=== PATIENT | female | born 1985 | race Two or more races ===

== ENCOUNTER → 2024-04-28 | Outpatient (CLI) | payer OTHER, SELFPAY ==
[2024-04-28 07:05] LABS: Misc Send Out* See Sep Rpt
[2024-04-28 16:07] LABS: RA Screen Negative (Negative)
[2024-05-09 15:31] LABS: Sjogren's antibody (SS-A) <1.0 NEG AI (<1.0 NEGATIVE); Sm Antibody <1.0 NEG AI (<1.0 NEGATIVE)
[2024-05-10 06:30] LABS: ANA Screen, IFA POSITIVE (NEGATIVE); ANA Titer 1:40 titer; Actin Antibody (IgG)* <20 U; Complement Component C3* 147 mg/dL (83-193); Complement Component C4c* 24 mg/dL (15-57); Endomysial Ab IgA NEGATIVE (NEGATIVE); Gastric Parietal Cell Ab* 20.5 U; Mitochondrial Ab NEGATIVE (NEGATIVE); Myocardial Ab, IF NEGATIVE (NEGATIVE); Scl-70 Antibody* <1.0 NEG AI (<1.0 NEGATIVE); Sjogren's Antibody (SS-B) <1.0 NEG AI (<1.0 NEGATIVE); Sm/RNP Antibody <1.0 NEG AI (<1.0 NEGATIVE); Striated Muscle Ab NEGATIVE (NEGATIVE); Thyroid Peroxidase Antibodies* 1 IU/mL (<9)
== END | disposition home or self-care (01) ==
LOC: COPL 06:38
PROVIDERS: PCP Nurse Practitioner Primary Care; Referring Provider Specialist; Visit Provider Specialist
DX: R14.0 Abdominal distension (gaseous) (principal); R10.32 Left lower quadrant pain; R53.83 Other fatigue
CPT/HCPCS: 36415; 83516; 86015; 86038; 86039; 86160; 86225; 86231; 86235; 86255; 86376; 86430

== ENCOUNTER → 2024-12-01 | Outpatient (CLI) | payer BC, SELFPAY ==
--- NOTE | 2024-12-01 09:06 | XR_ITS ---
Examination: Lumbar spine, 5 views Technique: Lumbar spine AP, lateral, coned lateral lower lumbar spine, bilateral obliques 5 views Exam date and time: December 01, 2024 0907 hours INDICATIONS: Lower back pain one year. FINDINGS: Embolization type wires in the left abdomen and pelvis Lumbar dextroscoliosis 8 degrees Moderate diffuse facet arthropathy No lumbar fracture Moderate to advanced degenerative disc disease L5-S1 IMPRESSION: Moderate to advanced degenerative disc disease L5-S1
[2024-12-01 10:19] LABS: Basophils % (Auto) 0 % (0-2.5); Eosinophils # (Auto) 0.1 Thou/mm3 (0.0-0.5); Eosinophils % (Auto) 2 % (0-10); Hematocrit 37.2 % (36.0-46.0); Hemoglobin 13.1 g/dL (12.0-16.0); Immature Granulocytes % (Auto) 0 % (0-0); Immature Granulocytes Auto 0.01 Thou/mm3 (0.00-0.00); Lymphocytes # (Auto) 2.2 Thou/mm3 (1.0-4.8); Lymphocytes % (Auto) 34 % (10-50); Mean Corpuscular HGB Conc 35.2 g/dl (31.0-37.0); Mean Corpuscular Hemoglobin 31.6 pg (25.0-35.0); Mean Corpuscular Volume 90 fL (80-100); Monocytes # (Auto) 0.5 Thou/mm3 (0.0-0.8); Monocytes % (Auto) 7 % (0-12); Neutrophils # (Auto) 3.7 Thou/mm3 (1.8-7.7); Neutrophils % (Auto) 57 % (37-80); Nucleated Red Blood Cell % 0 /100 WBC (0); Platelet Count 255 Thou/mm3 (140-440); Red Blood Count 4.15 Miln/mm3 (4.00-5.20); White Blood Count 6.4 Thou/mm3 (3.6-11.0)
[2024-12-01 10:29] LABS: Glucose Estimated Average 97 mg/dL (80-131)
[2024-12-01 10:36] LABS: T4 (Thyroxine) 7.8 mcg/dL (4.5-10.9)
[2024-12-01 10:38] LABS: Alanine Aminotransferase 24 U/L (10-49); Albumin, Serum 4.8 gm/dL (3.5-5.0); Albumin/Globulin Ratio 2.1 (1.2-2.2); Alkaline Phosphatase 92 U/L (46-116); Anion Gap 9 (7-16); Aspartate Amino Transferase 30 U/L (0-34); BUN/Creatinine Ratio 20 Ratio (12-20); Bilirubin,Direct 0.1 mg/dL (0.0-0.3); Bilirubin,Total 0.4 mg/dL (0.3-1.2); Blood Urea Nitrogen 14 mg/dL (9-23); Calcium 9.2 mg/dL (8.3-10.6); Calcium (Corrected) 9.2 mg/dL (8.5-10.1); Carbon Dioxide 27.7 mMol/L (20.0-31.0); Cardiac Risk Estimate 2.5 RATIO (3.7-5.6); Chloride 107 mMol/L (98-107); Cholesterol 204 mg/dL (132-200); Creatinine (Component) 0.7 mg/dL (0.6-1.3); Free T4 (Free Thyroxine) 1.13 ng/dL (0.89-1.76); Globulin 2.3 gm/dL (2.3-3.5); Glucose 84 mg/dL (74-106); HDL Cholesterol 82 mg/dL (40-60); LDL Cholesterol,Calculated 90 mg/dL (0-130); Osmolality,Calculated 286 (275-295); Potassium 4.4 mMol/L (3.4-5.1); Sodium 144 mMol/L (136-145); Thyroid Stimulating Hormone 1.25 uIU/mL (0.55-4.78); Total Protein 7.1 gm/dL (5.7-8.2); Triglycerides 159 mg/dL (30-150); eGFR > 60 See Note
[2024-12-05 06:39] LABS: T3,Total* 111 ng/dL (76-181)
== END | disposition home or self-care (01) ==
PROVIDERS: PCP Physician Assistant; Referring Provider Nurse Practitioner Family; Visit Provider Nurse Practitioner Family
DX: M51.379 Other intervertebral disc degeneration, lumbosacral region without mention of lumbar back pain or lower extremity pain (principal); Z00.00 Encounter for general adult medical examination without abnormal findings
CPT/HCPCS: 36415; 72110; 80053; 80061; 82248; 83036; 84436; 84439; 84443; 84480; 85025

== ENCOUNTER 2025-05-18 17:11 | Emergency (ER) | payer BC, SELFPAY ==
[2025-05-18 17:11] VITALS: BMI 27.4
[2025-05-18 17:23] VITALS: BP 126/79; PULSE 74; RESP 19; TEMP 36.8; O2SAT 99
--- NOTE | 2025-05-18 17:28 | XR_ITS ---
Examination: CT abdomen and pelvis without contrast. Coronal 3-D reconstructions. Sagittal 2-D reconstructions. Date and time of exam: May 18, 2025, 1942 hours INDICATIONS: Abdomen pain lower back pain beginning 1 week ago CTDI: vol (mGy): 7.54 DLP: (mGycm): 401 Technique: Axial images of the abdomen have been obtained, 3 mm slice thickness Intravenous contrast material has not been administered. Low dose protocols were performed. One or more of the following dose reduction techniques were used; automated exposure control, adjustment of the mA and/or KV according to patient size, use of iterative reconstruction technique. Findings: No focal liver or splenic lesions No gallstones No pancreatic mass No renal or ureteral calculi, no hydronephrosis Normal appendix No bowel obstruction or diverticulitis Moderate degenerative disc disease L5-S1 IMPRESSION: No acute process in the abdomen or pelvis Moderate degenerative disc disease L5-S1
--- NOTE | 2025-05-18 17:29 | PD.EDRME ---
Rapid Medical Screening Exam E Arrival date/time: 05/18/25 17:11 39-year-old female with no known medical history presents to the emergency room with a chief complaint of 8 out of 10 diffuse abdominal pain, back pain, and nausea x 1 week I have greeted and performed a focused initial assessment of this patient. A comprehensive ED assessment and evaluation of the patient, analysis of all test results, and completion of the medical decision making process will be conducted by additional ED providers. Chief Complaint: Abdominal Pain Vital signs: Vital Signs Temperature 98.3 F 05/18/25 17:23 Pulse Rate 74 05/18/25 17:23 Respiratory Rate 19 05/18/25 17:23 Blood Pressure 126/79 05/18/25 17:23 Pulse Oximetry (%) 99 05/18/25 17:23 Oxygen Delivery Method Room Air 05/18/25 17:23 Vital signs reviewed by provider: Yes Exam: 8 out of 10 abdominal pain to all quadrants of her abdomen Clear bilateral lung sounds Clinical Impression: Appendicitis/cholelithiasis/cholecystitis/UTI/gastroenteritis
[2025-05-18 17:59] LABS: Basophils # (Auto) 0.0 Thou/mm3 (0.0-0.2); Basophils % (Auto) 0 % (0-2.5); Eosinophils # (Auto) 0.1 Thou/mm3 (0.0-0.5); Eosinophils % (Auto) 1 % (0-10); Hematocrit 37.3 % (36.0-46.0); Hemoglobin 13.1 g/dL (12.0-16.0); Immature Granulocytes Auto 0.02 Thou/mm3 (0.00-0.00); Lymphocytes # (Auto) 2.8 Thou/mm3 (1.0-4.8); Lymphocytes % (Auto) 40 % (10-50); Mean Corpuscular HGB Conc 35.1 g/dl (31.0-37.0); Mean Corpuscular Hemoglobin 32.3 pg (25.0-35.0); Mean Corpuscular Volume 92 fL (80-100); Monocytes # (Auto) 0.4 Thou/mm3 (0.0-0.8); Monocytes % (Auto) 6 % (0-12); Neutrophils # (Auto) 3.8 Thou/mm3 (1.8-7.7); Neutrophils % (Auto) 52 % (37-80); Nucleated Red Blood Cell # 0.00 Thou/mm3 (0.00-0.00); Nucleated Red Blood Cell % 0 /100 WBC (0); Platelet Count 236 Thou/mm3 (140-440); RDW Standard Deviation 46.0 fL (36.4-46.3); Red Blood Count 4.05 Miln/mm3 (4.00-5.20); White Blood Count 7.2 Thou/mm3 (3.6-11.0)
[2025-05-18 18:16] LABS: Alanine Aminotransferase 13 U/L (10-49); Albumin, Serum 5.1 gm/dL (3.5-5.0); Albumin/Globulin Ratio 2.4 (1.2-2.2); Alkaline Phosphatase 71 U/L (46-116); Anion Gap 11 (7-16); Aspartate Amino Transferase 19 U/L (0-34); BUN/Creatinine Ratio 15 Ratio (12-20); Bilirubin,Total 0.3 mg/dL (0.3-1.2); Blood Urea Nitrogen 12 mg/dL (9-23); Calcium 9.4 mg/dL (8.3-10.6); Calcium (Corrected) 9.4 mg/dL (8.5-10.1); Carbon Dioxide 23.4 mMol/L (20.0-31.0); Chloride 108 mMol/L (98-107); Creatinine (Component) 0.8 mg/dL (0.6-1.3); Estimated Creatinine Clearance 85.4 mL/min (>60); Globulin 2.1 gm/dL (2.3-3.5); Glucose 94 mg/dL (74-106); Lipase 40 U/L (12-53); Osmolality,Calculated 282 (275-295); Potassium 3.9 mMol/L (3.4-5.1); Sodium 142 mMol/L (136-145); Total Protein 7.2 gm/dL (5.7-8.2); eGFR > 60 See Note
[2025-05-18 18:21] LABS: Collection Type, Urine Clean Catch
[2025-05-18 18:50] LABS: Bacteria,Urine Rare; Bilirubin,Urine Negative (Negative); Blood,Urine Trace (Negative); Clarity,Urine Clear (Clear/Hazy); Color,Urine Lt-Yellow (Lt Yel-Yel); Glucose, Urine Negative (Negative); Ketones,Urine Negative (Negative); Leukocyte Esterase,Urine Negative (Negative); Nitrite,Urine Negative (Negative); PH,Urine 6.5 (5.0-7.0); Protein,Urine Trace (Neg - Trace); RBC,Urine 18 /hpf (0-3); Specific Gravity,Urine 1.029 (1.001-1.035); Squamous Epithelial Cell,Urine 7 /hpf (0-5); Urobilinogen,Urine Negative mg/dL (0.0-1.0); WBC,Urine < 1 /hpf (0-5)
[2025-05-18 18:57] LABS: HCG Qualitative,Urine Negative
[2025-05-18 20:36] VITALS: BP 109/70; PULSE 75; RESP 18; TEMP 36.7; O2SAT 99
--- NOTE | 2025-05-18 20:48 | PRELIM_ITS ---
CT scan of the abdomen and pelvis without intravenous contrast (axial sections with sagittal and coronal reformats) May 18, 2025 1942 hours Clinical History: abd pain Comparison: No prior study is available for comparison. Findings: The lung bases are clear. The liver, gallbladder, pancreas, spleen, kidneys and adrenals are unremarkable on this noncontrast study. No evidence of bowel obstruction. There is mild thickening versus underdistention of the descending colon and sigmoid colon. The appendix is within normal limits (coronal image [id number]). There is no mesenteric or retroperitoneal adenopathy. The urinary bladder is unremarkable. There is no free fluid or free air. There are surgical clips in the retroperitoneum anterior to the left psoas muscle. Soft tissue abnormality in the left gluteal region, likely related to percutaneous injection. The osseous structures are unremarkable. Impression: No evidence of acute intra-abdominal or pelvic pathology. Report Electronically Signed By: Holland Mcintosh 05/18/2025 8:48:08 PM [EST]
--- NOTE | 2025-05-18 21:02 | PD.EDABDPN ---
ED Abdominal Pain RME/HPI General Chief Complaint: Abdominal Pain Stated complaint: ABD & BACK PAIN Time seen by provider: 05/18/25 18:32 Arrival date/time: 05/18/25 17:11 39-year-old female patient came in for evaluation regarding back pain. Patient's been having back pain for few days, also complained of diffuse abdominal pain, described as dull ache, severity moderate. Was seen by PCP and was referred for further evaluation. Patient is currently taking Pepcid for acid reflux. Patient denies any fever no vomiting no diarrhea no constipation no other complaints noted. No medication was taken prior to ER visit. RME / HPI RME / HPI narrative: 05/18/25 17:11 39-year-old female with no known medical history presents to the emergency room with a chief complaint of 8 out of 10 diffuse abdominal pain, back pain, and nausea x 1 week I have greeted and performed a focused initial assessment of this patient. A comprehensive ED assessment and evaluation of the patient, analysis of all test results, and completion of the medical decision making process will be conducted by additional ED providers. Exam: 8 out of 10 abdominal pain to all quadrants of her abdomen Clear bilateral lung sounds Impression: Appendicitis/cholelithiasis/cholecystitis/UTI/gastroenteritis Related Data Home Medications ?Medication ?Instructions ?Recorded ?Confirmed elagolix 150 mg tablet (Orilissa) 150 mg PO DAILY 03/23/24 03/24/24 fluoxetine 10 mg tablet 10 mg PO DAILY 03/23/24 03/24/24 propranolol 10 mg tablet 10 mg PO TID PRN Anxiety 03/23/24 03/24/24 rizatriptan 5 mg tablet 5 mg PO DAILY PRN Migraine Headache 03/23/24 03/24/24 Allergies Allergy/AdvReac Type Severity Reaction Status Date / Time Sulfa (Sulfonamide Allergy Rash Verified 05/18/25 17:13 Antibiotics) Review of Systems Review of Systems Narrative Review of Systems: Review of system reviewed and within normal limits except mentioned in HPI ED Exam Narrative Physical exam: VITAL SIGNS: Reviewed. GENERAL APPEARANCE: Alert and interactive, follows commands, no acute distress, HEAD AND FACE: Non-traumatic. ENT: PERRL, pink conjunctivitis, eyelid no trauma, Mucous membrane moist. NECK: Supple, nontender, no nuchal rigidity. CHEST: No tenderness, no crepitus, no paradoxical movement, no retractions. LUNGS: Clear, well ventilated, symmetric, no rales, no wheezing, no ronchi, no stridor, good breath sounds bilaterally. HEART: Regular rate, regular rhythm, no murmur, no gallops. ABDOMEN: Soft, positive bowel sounds, nondistended, no guarding, mild diffuse abdominal tenderness, no rebound, no masses, RECTAL: Deferred. GENITAL: Deferred. NEUROLOGICAL: Gross motor function intact sensory function intact, Appropriate for age. MUSCULOSKELETAL: low back nontender, full range of motion. EXTREMITIES: Nontender, full range of motion. SKIN: Color pink, dry, no rash, no lacerations, no abrasions, no contusions. LYMPHATICS: Deferred. Course Quality Measures none Orders Category Date Time Status CT abdomen pelvis wo con Stat Exams 05/18/25 17:28 Taken CBC Stat Lab 05/18/25 17:44 Completed CMP [Comprehensive Metabolic Panel] Stat Lab 05/18/25 17:44 Completed HCG Qualitative,Urine Stat Lab 05/18/25 17:55 Completed Lipase Stat Lab 05/18/25 17:44 Completed UA [Urinalysis] Stat Lab 05/18/25 17:55 Completed Urine Culture Stat Lab 05/18/25 17:55 Received Vital Signs Vital signs: Vital Signs Temperature 98.3 F 05/18/25 17:23 Pulse Rate 74 05/18/25 17:23 Respiratory Rate 19 05/18/25 17:23 Blood Pressure 126/79 05/18/25 17:23 Pulse Oximetry (%) 99 05/18/25 17:23 Oxygen Delivery Method Room Air 05/18/25 17:23 Abdominal Pain MDM MDM Narrative MDM Narrative:: 05/18/25 17:11 39-year-old female patient came in for evaluation regarding back pain. Patient's been having back pain for few days, also complained of diffuse abdominal pain, described as dull ache, severity moderate. Was seen by PCP and was referred for further evaluation. Patient is currently taking Pepcid for acid reflux. Patient denies any fever no vomiting no diarrhea no constipation no other complaints noted. No medication was taken prior to ER visit. Patient's workup today laboratory workup including CBC CMP urinalysis all came back normal total bili is unremarkable. Lipase is normal CT scan of the abdomen also came back unremarkable. Patient was advised to follow-up with PCP. Stable for discharge home Patient data External records reviewed:: None Clinical information provided by:: none Social determinants that could affect healthcare access:: none Patient has the following chronic illnesses:: History of endometriosis How is presenting disease/condition affected by chronic disease/condition?: exacerbated by Evaluation data The following diagnostics were reviewed and interpreted by me:: lab results and radiology exam(s) Lab and/or radiology exams considered but not ordered:: None Interpretation Summary: See above Medications / Prescriptions Medications or Prescriptions considered but not ordered:: None Medication administrations:: None Consultations Consultation(s) initiated? (list below): No Diagnosis Differential diagnosis abdominal pain: abdominal pain, diverticulitis and endometriosis Most likely diagnosis given after review of the tests above:: Abdominal pain, low back pain Admission Indicated Admission indicated?: not indicated Admission Request Was there a request for admission?: No Disposition Plan Disposition Plan: Discharge Discharge Attestation Discharge Attestation: The patient was given an opportunity to ask questions and understood the discharge instructions. Discharge instructions specifically effects, indications for sooner follow up or return to the emergency department, and the expected course of current diagnosis. Patient condition: Stable Discharge Plan Plan Patient Disposition: HOME (Self Care) Discharge Disposition comment: stable Prescriptions/Referrals Prescriptions/Med Rec: No Action fluoxetine 10 mg tablet 10 mg PO DAILY Patient Comments: take 1 tablet by mouth once daily propranolol 10 mg tablet 10 mg PO TID PRN (Reason: Anxiety) Patient Comments: take 1 tablet by mouth three times a day rizatriptan 5 mg tablet 5 mg PO DAILY PRN (Reason: Migraine Headache) Patient Comments: take 1 tablet by mouth once daily if needed for MIGRAINE HEADACHE Orilissa 150 mg tablet 150 mg PO DAILY Referrals: Sarah Gaytan FNP ([facility]) [Primary Care Provider] - In 1 week Problem List Clinical Impression: Abdominal pain, Back pain Patient/Caregiver Discharge Instructions Discharge Activity: activity as tolerated Education Materials: Abdominal Pain Additional Instructions: Thank you for the opportunity for serving you today. You are stable for discharged . You are advised to: Follow-up with your PCP in 1 to 2 days Return to ED for worsening of symptoms Print Language: [place]ian Stand Alone Forms: [employer] Award Info., Patient Portal Info Letter FAVIOLA/NIA Supervising Physician FAVIOLA/NIA Supervising Physician: MD Beau
--- NOTE | 2025-05-18 21:37 | PC.NURSE ---
PATIENT STATED THAT SHE WASN'T GOING TO WAIT FOR DISCHARGE PAPERWORK AND SHE ALREADY SPOKE WITH PROVIDER. PATIENT PROCEEDED TO LEAVE ED WITHOUT DISCHARGE INSTRUCTIONS OR ASSESSMENT.
== END 2025-05-18 21:39 | disposition home or self-care (01) ==
PROVIDERS: Nurse Practitioner Family; Emergency Provider Family Medicine; PCP Nurse Practitioner Primary Care
DX: R10.84 Generalized abdominal pain (principal); M54.50 Low back pain, unspecified
CPT/HCPCS: 36415; 74176; 80053; 81001; 81025; 83690; 85025; 87086; 99283